=== PATIENT | female | born 1990 | race Caucasian/White ===

== ENCOUNTER → 2019-12-12 16:51 | Outpatient (CLI) | payer BC, SELFPAY ==
--- NOTE | ~2019-12-12 | XR_ITS ---
EXAMINATION: XR chest 2V EXAM DATE: 12/12/2019 17:34 INDICATION: R07.89 - Other chest pain . Shortness of breath and chest pressure for the anterior porti on of middle chest for 3 days. TECHNIQUE: Frontal and lateral projections of the chest obtained and reviewed. There is no prior jeremy dy for comparison. FINDINGS: The lungs are clear. There are no pleural effusions. The cardiomediastinal silhouette is within normal limits. There is no pneumothorax suspected. The bones and soft tissues are unremarkab le. IMPRESSION: No acute cardiopulmonary findings. Reviewed, dictated and finalized at location A.
== END ==
PROVIDERS: PCP Internal Medicine; Visit Provider Internal Medicine
DX: R07.89 Other chest pain (principal)
CPT/HCPCS: 71046

== ENCOUNTER 2019-12-17 07:53 | Outpatient (CLI) | payer BC, SELFPAY ==
--- NOTE | ~2019-12-17 | US_ITS ---
EXAMINATION: US right upper quadrant DATE: 12/17/2019 08:56 INDICATION: Abdominal pain TECHNIQUE: Multiple grayscale and Doppler ultrasound images of the abdomen were obtained. COMPARISON: None FINDINGS: Liver has normal echogenicity and contour, with a smooth surface. No liver lesion identified. No intr ahepatic biliary duct dilation suspected. Portal venous flow was seen in the hepatopetal, normal dire ction and has normal Doppler waveform. The gallbladder is normal in appearance. There is no cholelit hiasis. The common bile duct measures 3-4 mm, which is normal. Sonographic Bojorquez sign was reported a s negative by the postal carrier.Visualized portion of the right kidney demonstrates normal contour and echogenicity with no hydronephrosis. The pancreatic head and body are normal in appearance. The panc reatic tail is not visualized. The visualized proximal to mid inferior vena cava is normal. IMPRESSION: 1. Normal right upper quadrant ultrasound. Reviewed, dictated and finalized at location B.
== END 2019-12-17 07:54 | disposition home or self-care (01) ==
PROVIDERS: PCP Internal Medicine; Visit Provider Clinical Nurse Specialist
DX: R10.9 Unspecified abdominal pain (principal)
CPT/HCPCS: 76705

== ENCOUNTER 2019-12-31 08:55 | Outpatient (CLI) | payer BC, SELFPAY ==
--- NOTE | 2020-01-11 15:49 | WPDHOLTEREM ---
Holter/Event Monitor Holter/Event Monitor Date of procedure: 01/11/20 Procedure Type: 48 hour Holter monitor Diagnosis: palpitation Indications: palpitation Image/Tracing Quality: tracing quality was adequate there were examples of baseline artifact but this did not render the strips uninterpretable Finding: the basic cardiac rhythm is sinus with normal [place] QRS and QT intervals. The heart rate varies from a minimum of 50 to a maximum of 146 the mean rate was 78. There were no significant pauses or abnormalities of AV conduction. The longest RR interval recorded was 1.4 seconds. Supraventricular ectopic activity was extremely rare 3 APCs were seen during the entire 48 hour study. There were no examples of atrial fibrillation. Ventricular ectopic activity was also rare a total of 6 PVCs were seen during the entire exam. There were no ventricular couplets or runs. The patient maintained a diary in which a number of symptomatic episodes were recorded. At 11:40 a.m. on day 1 symptoms of chest pain correlate with sinus rhythm at a heart rate of 83 without any arrhythmias. At 11:50 a.m. on the same day symptoms of palpitations correlate with sinus rhythm heart rate of 79 without ectopic activity. And D 2. At 7:45 a.m. an episode of chest pain correlates with sinus rhythm at a heart rate of 75 without arrhythmias. At 9:40 a.m. an episode of chest pain correlates with sinus rhythm heart rate of 90 without without arrhythmia. At 2:47 p.m. an episode of lightheadedness and dizziness correlates with sinus rhythm at a heart rate of 93 without any arrhythmias. Conclusion: Essentially unremarkable 48 hour Holter monitor scan. Low-frequency atrial and ventricular ectopic activity. Symptoms as noted in the diary do not appear to be related to any arrhythmias Chavo Ramires MD [facility]
== END 2019-12-31 08:56 | disposition home or self-care (01) ==
PROVIDERS: PCP Internal Medicine; Visit Provider Clinical Nurse Specialist
DX: R00.2 Palpitations (principal)
CPT/HCPCS: 93225; 93226

== ENCOUNTER 2020-03-29 09:48 | Outpatient (CLI) | payer BC, SELFPAY ==
--- NOTE | ~2020-03-29 | MR_ITS ---
EXAMINATION: MR brain/brain stem wo con DATE: 03/29/2020 10:37 INDICATION: Headache. TECHNIQUE: Magnetic resonance imaging (MRI) of the brain and brainstem was performed without intraven ous contrast. Sequences included sagittal and axial T1-weighted FSE, axial diffusion-weighted FS EPI, axial T2*-weighted GRE, axial T2-weighted FLAIR Propeller, and axial T2-weighted Propeller. Apparent diffusion coefficient (ADC) maps were created. COMPARISON: None. FINDINGS: There is no intracranial hemorrhage, acute infarction, or abnormal intracranial mass lesion . The ventricles are normal in size. There is mild mucosal thickening in the paranasal sinuses. The o rbits are normal. The mastoid air cells are normal. IMPRESSION: 1. Normal brain. Reviewed, dictated and finalized at location A. [facility] IMPRESSION: 1. Normal brain.
== END 2020-03-29 09:49 | disposition home or self-care (01) ==
PROVIDERS: PCP Internal Medicine; Visit Provider Nurse Practitioner
DX: R51.9 Headache, unspecified (principal)
CPT/HCPCS: 70551

== ENCOUNTER 2022-03-03 09:16 | Outpatient (CLI) | payer OTHER, SELFPAY ==
[2022-03-03 17:55] LABS: Basophils Percent Auto 0.6 % (0.2-1.2); Eosinophils Absolute Auto 0.2 K/mm3 (0-0.3); Eosinophils Percent Auto 3.3 % (0-4.4); Hematocrit 41.9 % (37.0-47.0); Hemoglobin 13.5 g/dL (12.0-15.0); Immature Granulocyte Absolute 0.01 K/mm3 (0.00-0.031); Immature Granulocyte Percent A 0.2 % (0-0.5); Lymphocytes Absolute Auto 2.63 K/mm3 (0.9-3.2); Lymphocytes Percent Auto 39.9 % (18.3-44.2); Mean Corpuscular HGB Conc 32.2 g/dl (32-36); Mean Corpuscular Hemoglobin 30.8 pg (26-34); Mean Corpuscular Volume 95.7 fl (80-100); Mean Platelet Volume 10.2 fl (7.4-10.4); Monocytes Absolute Auto 0.6 K/mm3 (0.1-0.6); Monocytes Percent Auto 9.3 % (2.6-8.5); Neutrophils Absolute Auto 3.1 K/mm3 (1.3-6.7); Neutrophils Percent Auto 46.7 % (45.5-73.1); Platelet Count Result 224 k/mm3 (150-375); Red Blood Count 4.38 M/mm3 (4.2-5.4); Red Cell Distribution Width 12.7 % (11.5-14.5); White Blood Count 6.6 K/mm3 (4.5-10.0)
[2022-03-03 19:03] LABS: Erythrocyte Sedimentation Rate 12 mm/hr (0-20)
[2022-03-03 20:37] LABS: Alanine Aminotransferase 20 U/L (6-35); Albumin Level 4.6 g/dL (3.5-5.1); Alkaline Phosphatase 51 U/L (38-126); Anion Gap 9 mmol/L (8-16); Aspartate Amino Transferase 30 U/L (14-36); Bilirubin,Total 0.6 mg/dL (0.2-1.3); Blood Urea Nitrogen 16 mg/dL (7-17); Calcium 9.3 mg/dL (8.4-10.2); Carbon Dioxide 28 mmol/L (22-30); Chloride 103 mmol/L (98-107); Estimated Glomerular Filt Rate > 60; Glucose 60 mg/dL (65-110); Potassium 4.5 mmol/L (3.4-5.0); Sodium 140 mmol/L (137-145)
== END 2022-03-03 09:17 | disposition home or self-care (01) ==
LOC: ANHGOSHLAB 09:18
PROVIDERS: PCP Internal Medicine; Visit Provider Nurse Practitioner
DX: R21 Rash and other nonspecific skin eruption (principal)
CPT/HCPCS: 36415; 80053; 84443; 85025; 85652

== ENCOUNTER 2022-07-04 09:37 | Emergency (ER) | payer OTHER, SELFPAY ==
--- NOTE | ~2022-07-04 | XR_ITS ---
XR forearm LT 2V 07/04/2022 10:03 INDICATION: Left arm pain PROCEDURE: 2 views left forearm COMPARISON: No prior studies for comparison. FINDINGS: Fracture, dislocation or subluxation is not identified. The soft tissues appear within norm al limits. No foreign bodies are identified. IMPRESSION: 1: NO ACUTE BONE OR JOINT ABNORMALITY IDENTIFIED. Reviewed, dictated and finalized at location A.
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
[2022-07-04 09:47] VITALS: BP 116/76; PULSE 66; RESP 16; TEMP 36.7; O2SAT 100
--- NOTE | 2022-07-04 10:09 | PC.NURSE ---
PT DECLINED ICE FOR COMFORT
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
== END 2022-07-04 10:15 | disposition home or self-care (01) ==
PROVIDERS: Emergency Provider Nurse Practitioner; PCP Internal Medicine
DX: S60.222A Contusion of left hand, initial encounter (principal); S50.12XA Contusion of left forearm, initial encounter; S50.812A Abrasion of left forearm, initial encounter; V47.5XXA Car driver injured in collision with fixed or stationary object in traffic accident, initial encounter
CPT/HCPCS: 73090; 73130; 99213; G0463

== ENCOUNTER 2023-09-09 09:48 | Outpatient (CLI) | payer OTHER, SELFPAY ==
[2023-09-09 18:43] LABS: Basophils Percent Auto 0.5 % (0.2-1.2); Eosinophils Absolute Auto 0.1 K/mm3 (0-0.3); Eosinophils Percent Auto 1.6 % (0-4.4); Hematocrit 42.4 % (37.0-47.0); Hemoglobin 13.5 g/dL (12.0-15.0); Immature Granulocyte Absolute 0.04 K/mm3 (0.00-0.031); Immature Granulocyte Percent A 0.7 % (0-0.5); Lymphocytes Absolute Auto 2.75 K/mm3 (0.9-3.2); Lymphocytes Percent Auto 48.6 % (18.3-44.2); Mean Corpuscular HGB Conc 31.8 g/dl (32-36); Mean Corpuscular Hemoglobin 29.6 pg (26-34); Mean Platelet Volume 9.9 fl (7.4-10.4); Monocytes Absolute Auto 0.5 K/mm3 (0.1-0.6); Neutrophils Absolute Auto 2.2 K/mm3 (1.3-6.7); Neutrophils Percent Auto 39.6 % (45.5-73.1); Platelet Count Result 227 k/mm3 (150-375); Red Blood Count 4.56 M/mm3 (4.2-5.4); Red Cell Distribution Width 12.1 % (11.5-14.5); White Blood Count 5.7 K/mm3 (4.5-10.0)
[2023-09-09 19:02] LABS: Alanine Aminotransferase 25 U/L (6-35); Albumin Level 4.7 g/dL (3.5-5.1); Alkaline Phosphatase 53 U/L (38-126); Anion Gap 9 mmol/L (4-12); Aspartate Amino Transferase 38 U/L (14-36); Bilirubin,Total 0.6 mg/dL (0.2-1.3); Blood Urea Nitrogen 15 mg/dL (7-17); Calcium 9.1 mg/dL (8.4-10.2); Carbon Dioxide 29 mmol/L (22-30); Chloride 99 mmol/L (98-107); Cholesterol 193 mg/dL (0-200); Estimated Glomerular Filt Rate > 60; Glucose 81 mg/dL (65-110); HDL Direct 39 mg/dL; Potassium 4.6 mmol/L (3.4-5.0); Sodium 137 mmol/L (137-145); Triglycerides 87 mg/dL (<150)
[2023-09-09 19:14] LABS: LDL Cholesterol Direct 132 mg/dL
[2023-09-09 19:22] LABS: Vitamin D 25 Hydroxy 37.7 ng/mL
== END 2023-09-09 09:49 | disposition home or self-care (01) ==
LOC: ANHGOSHLAB 09:50
PROVIDERS: PCP Internal Medicine; Visit Provider Nurse Practitioner
DX: F41.9 Anxiety disorder, unspecified (principal); E55.9 Vitamin D deficiency, unspecified; G47.19 Other hypersomnia
CPT/HCPCS: 36415; 80053; 80061; 82306; 82607; 82728; 84443; 85025

== ENCOUNTER 2024-11-16 09:55 | Outpatient (CLI) | payer OTHER, SELFPAY ==
--- OUTSIDE RECORDS SUMMARY | 2024-11-16 10:00 | XMS_ITS | Clinical Summary ---
Author Organization [facility] Address [address] [address] Care Team Providers Care Customer Service Advocate Name Role Phone Greg Guzman DO Primary Care Provider [phone] Allergies Active Allergy Reactions Criticality Noted Date Comments Erythromycin-Sulfisoxazole Rash Medium 8 Medications magnesium oxide,aspartate,ci tr (Triple Magnesium Complex) 400 mg magnesium capsule Take by mouth Active acetaminophen 500 mg capsuleIndications :Fever,Pain Take 2 capsules (1,000 mg total) by mouth every 6 (six) hours as needed for pain 90 tablet 1 02/18/20 21 Active Additional Information Patient not taking.Reported on 10/05/2024 ibuprofen (ADVIL,MOTRIN) 600 mg tabletIndications: Cramps Take 1 tablet (600 mg total) by mouth every 6 (six) hours as needed for pain 90 tablet 1 02/18/20 21 Active Additional Information Patient not taking.Reported on 10/05/2024 sertraline (ZOLOFT) 50 mg tabletIndications: Anxiety with Depression Take 1.5 tablets (75 mg total) by mouth every morning 30 tablet 11 03/30/19 22 Active Additional Information Patient not taking.Reported on 10/05/2024 cetirizine (ZyrTEC) 10 mg chewable tablet Take 1 tablet (10 mg total) by mouth daily Active rizatriptan [employer] (MAXALT-VP [employer]) 5 mg disintegrating tabletIndications: Migraine Take 1 tablet (5 mg total) by mouth once as needed for migraine May repeat in 2 hours if unresolved. Do not exceed 30 mg in 24 hours. Active ALPRAZolam (XANAX) 0.25 mg tablet Take 1 tablet (0.25 mg total) by mouth daily as needed 09/09/19 24 Active buPROPion XL (WELLBUTRIN XL) 300 mg 24 hr tablet TAKE 1 TABLET BY MOUTH EACH MORNING 05/17/19 25 Active Hospital, Clinic, or Other Facility Administered Medication Ordered Dose Route Frequency Start Date End Date Status levonorgestreL (MIRENA) 21 mcg/24 hours (8 yrs) 52 mg IUDIndications:Preg lupe Contraception intrauterine Continuous (implanted device) 05/26/2023 9 Active Active Problems Problem Noted Date Diagnosed Date Acute non-recurrent maxillary sinusitis 12/31/19 23 Assessment & Plan (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 Stopped 07/2017. Infertility associated with anovulation 07/05/19 18 IBS (irritable bowel syndrome) 07/04/2017 Family history of genetic disorder 04/19/2016 Encounter for preconception consultation 017 Focal nodular hyperplasia of liver 01/31/2015 Lesion of liver 01/07/2015 Right upper quadrant abdominal pain 01/06/2015 Decreased cardiac output 12/26/2014 Resolved Problems Problem Noted Date Diagnosed Date Resolved Date care following vaginal delivery 02/16/2021 03/30/2021 Overview (02/17/2021): # ID: Afebrile. No signs/symptoms of infection. #COVID-19: Negative # Heme: EBL 150 mL. No symptoms acute blood loss anemia. Admission Hgb 11.1. #Rh negative: Rh negative, no Rhogam needed. # CV/Pulm: Isolated MR blood pressure not meeting criteria for gHTN. Will CTM. # GI/: Tolerating PO. Voiding spontaneously. # Pain: Controlled with above regimen. # Anxiety: On Zoloft 50mg. Reports that mood has been stable. # Post DVT prophylaxis: The patient has the following MAJOR risk factors none and the following MINOR risk factors none. SCDs ordered for VTE prophylaxis. # MOC: Undecided - plans to address . # MOF: # COVID Vaccination Status: Previously received . Declines booster dose while inpatient. # Disposition: Follow up task not sent. Desires discharge home today. heart rate deceleratio ns affecting management of mother 02/15/2021 03/30/2021 Overview (02/15/2021): 1. Induction of labor for decels at term: Admit to L&D. Consents signed and placed in chart. Send CBC/T&S. Given made some cervical change in WAC, will expectantly manage for now. If does not make further change will induce with OT. 2. FWB: Continuous monitoring. tracing category II, reassured by variability and accels 3. ID: HIV negative. GBS negative. Membrane Status: intact. 4. Indications for UDS: none. Verbal consent obtained for UDS: Not indicated 5. MOF: Plans to breastfeed. 6. MOC: Undecided on contraception. 7. Pain management: Desires epidural during labor. 8. Post DVT prophylaxis: The patient has the following MAJOR risk factors none and the following MINOR risk factors BMI 30-39. SCDs will be ordered for VTE prophylaxis . 9. COVID Vaccine Status: Not assessed 10. COVID Test Status: Test sent on admission 11. Rh negative: for PP rhogam workup 12. Anxiety: on SSRI, for peds at delivery 13. Hx gHTN: normotensive on admission Supervision of other normal , antepartum 07/18/2020 03/30/2021 Overview (02/05/2021): -Rh- -MAB 03/2020 s/p D&C -migraines: mag MCRM EZIO pt, spont preg -h/o gHTN in G1 -IOL sched 02/18/2021 @ 0830, pt aware , covid testing ordered [x] Labs: completed [x] Genetic Screening: nml CFDNA [x] Baby ASA: recommended [x] 1hr GCT at 24-28wks: nml, 119 [x] Tdap (27-36wks): 10/18-hr [x] Flu Shot: /18-hr [x] Rhogam (if Rh neg): A- 18-hr [x] GBS at 36 wks: Negative [x] [x] control method: undecided, list provided [x] 39 weeks discussion of IOL vs. Expectant management: 39wk IOL [x] Mode of delivery: anticipate [] For C/S bottle of CHG 4% and hand out provided @ 36wks Boy, circ+,, Dr. Brown in [place], [place] Teaching: [x] 1st visit [x] 28-30 week [x] 36 week Missed 04/11/2020 03/30/2021 Overview (04/11/2020): Added automatically from request for surgery [id number] Supervision of other normal , antepartum 03/04/2020 05/05/2020 Overview (03/24/2020): -Hx of GHTN last -anxiety: zoloft and ativan -headaches/migraines: imitrex -RH- [] Labs: [] Genetic Screening: [] Baby ASA: [] 1hr GCT at 24-28wks: [] Tdap (27-36wks): [] Flu Shot: [] Rhogam (if Rh neg): A- [] GBS at 36 wks: [] [] control method: [] 39 weeks discussion of IOL vs. Expectant management: [] Mode of delivery: [] For C/S bottle of CHG 4% and hand out provided @ 36wks Teaching: [] 1st visit [] 28-30 week [] 36 week Gestational hypertension, third trimester 05/15/2018 06/30/2018 Encounters Date Type Department Care Team Description 10/17/2024 Results Follow-Up Emir [facility]ov[facility] [address] [place] [address] [address] [place] [address] Mony Heller NP DIAGNOSTIC MAMMOGRAM BILATERAL W NELSON 10/11/2024 8:44 AM CDT - 10/11/2024 11:59 PM CDT Hospital Encounter [facility] [address] [place] [address] Subareolar mass of right breast Discharge Disposition: Discharge to home or self care 10/11/2024 8:44 AM CDT - 10/11/2024 11:59 PM CDT Hospital Encounter [facility] [address] [place] [address] Subareolar mass of right breast Discharge Disposition: Discharge to home or self care 10/05/2024 2:15 PM CDT Office Visit [facility] [address] [place] [address] [address] [place] [address] Mony Heller NP Subareolar mass of right breast (Primary Dx) 10/05/2024 Orders Only [facility] [address] [place] [address] [address] [place] [address] Mony Heller, JOLIE Subareolar mass of right breast (Primary Dx) 10/05/2024 Telephone [facility]irk[facility] Tovar [address] [place] [address] [address] [place] [address] Cadence Berumen NP Breast Mass from Last 3 Months Immunizations Immunization Administration Dates Next Due Influenza, Quadrivalent, Patty l Culture-based MDCK, Preservative Free, Antibiotic Free, Intramuscular 12/08/2020 Influenza, Unspecified 10/23/2019 Tdap 12/08/2020,03/13/2018 Surgical History Surgery Date Site/Laterality Comments TONSILLECTOMY 02/22/1992 - 02/20/1993 DIAGNOSTIC LAPAROSCOPY 02/22/2008 - 02/20/2009 COLPOSCOPY DILATION AND CURETTAGE, DIAG NOSTIC / THERAPEUTIC 04/18/2020 ADENOIDECTOMY Bilateral Medical History Medical History Date Comments Abnormal Pap smear of cervix 2009 HPV , negative on repeat Migraines Anxiety Supervision of other normal , antepartu m 03/04/2020 Family History Medical History Relation Name Comments Neurofibromatosis Brother Brugada arrhythmia Father Hypertension Father Neurofibromatosis Father Breast cancer Father's Sister 1 Neurofibromatosis Father's Sister 1 Breast cancer Father's Sister 2 Neurofibromatosis Father's Sister 2 Heart attack Maternal Grandfather Diabetes Maternal Grandmother Hyperlipidemia Maternal Grandmother Hypertension Maternal Grandmother Diabetes Mother Hypertension Mother Neurofibromatosis Paternal Grandfather Breast cancer Paternal Grandmother Anesthesia problems Neg Hx Relation Name Status Comments Brother Father Alive Father's Sister 1 Father's Sister 2 Maternal Grandfather Maternal Grandmother Mother Alive Paternal Grandfather Paternal Grandmother Social History Tobacco Use Types Packs/Day Years Used Date Smoking Tobacco: Never Smokeless Tobacco: Never Tobacco Cessation:Counseling Given: Not Answered Alcohol Use Standard Drinks/Week Comments Not Currently 1 (1 standard drink = 0.6 oz pur e alcohol) Humiliation, Afraid, Rape, and Kick questionnair e Answer Date Recorded Within the last year, have y ou been afraid of your partner or ex-partner? No 04/15/2023 Within the last year, have y ou been humiliated or emotionally abused in other ways by your partner or ex-partner? No Within the last year, have y ou been kicked, hit, slapped, or otherwise physically hurt by your partner or ex-partner? No 04/15/2023 Within the last year, have y ou been raped or forced to have any kind of sexual activity by your partner or ex-partner? No 04/15/2023 Social Connection and Isolation Panel Answer Date Recorded In a typical week, how many times do you talk on the phone with family, friends, or neighbors? More than three times a week 02/16/2021 How often do you get togethe r with friends or relatives? More than three times a week 02/16/2021 Attends Hoahaoism Services Not on file 02/16 Active Member of Clubs or Organizations Not on f ile 02/16/2021 Attends Club or Organization Meetings Not on maikel e 02/16/2021 Are you , , di vorced, , never , or living with a partner? 02/16/2021 AUDIT-C Answer Date Recorded Q1: How often do you have a drink containing alc ohol? Never 12/22/2020 Average Number of Drinks Not on file 021 Frequency of Binge Drinking Not on file 02/2020 Overall Financial Resource Strain (CARDIA) Answe r Date Recorded How hard is it for you to pa y for the very basics like food, housing, medical care, and heating? Not hard at all 02/16/2021 PHQ-2 Answer Date Recorded PHQ-2 Total Score (If total score is 3 or more points, staff should administer the PHQ-9) 0 08/03/2024 Exercise Vital Sign Answer Date Recorde d On average, how many days pe r week do you engage in moderate to strenuous exercise (like a brisk walk)? 0 days 02/29/2020 On average, how many minutes do you engage in exercise at this level? 0 min 02/29/2020 Hunger Vital Sign Answer Date Recorded Within the past 12 months, y ou worried that your food would run out before you got the money to buy more. Never true 02/17/20 21 Within the past 12 months, t he food you bought just didn't last and you didn't have money to get more. Never true 02/16/2021 PRAPARE - Transportation Answer Date Re corded In the past 12 months, has l ack of transportation kept you from medical appointments or from getting medications? No 01/22 In the past 12 months, has l ack of transportation kept you from meetings, work, or from getting things needed for daily living? No 02/16/2021 Potosi Depression Scale Answer Date Recorded Potosi Depression Scale Total 8 03/30/2021 The thought of harming myself has occurred to me . 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 Not on file Not on maikel e Not on file Obstetrics History Para Term AB IAB SAB Ectopic Multiple Livin g Live Births 3 2 2 0 1 0 1 0 0 2 2 Date Outcome GA Total Labor Labor/2nd/3rd Weight Sex Type Anes PTL Leonora A1 A5 Name Clin 2018 Term 37w 6d 0h 50m 0h 46m/0h 04m 2.68 kg (5 lb 14.5 oz) M Vag-S pont Epidur al N Livin g 8 9 CONCEPCION BACON Rachel Elizab eth, MD Complications:None Delivery Location:[facility] ([facility]) 2020 SAB 2020 Term 38w 4d 11h 23m 11h 00m/0h 14m/0h 09m 2.86 kg (6 lb 4.9 oz) M Vag-S pont Epidur al N Livin g 8 9 CONCEPCION BACON , Luke Gill MD Complications:None Delivery Location:[facility] Main C ampus ([facility]LD) Comments 2018 - pitocin induction for MANUELTKari. . [id number] TBA-38.4 who presented with contractions. She made a little change from 1.2->2, but had a decel so we kept her. Small perineal abrasion not repaired. EBL 150cc. Circ done! Last Filed Vital Signs Vital Sign Reading Time Taken Comments Blood Pressure 118/62 10/05/2024 2:13 PM CDT Pulse 62 10/03/2023 10:26 AM CDT Temperature 36.9 C (98.5 F) 10/03/2023 10:26 AM CDT Respiratory Rate 20 10/03/2023 10:26 AM CDT Oxygen Saturation 99% 10/03/2023 10:26 AM CDT Inhaled Oxygen Concentration - - Weight 74.4 kg (164 lb) 10/11/2024 8:53 AM CDT Height 167.6 cm (5' 6) 10/11/2024 8:53 AM CDT Body Mass Index 26.47 10/11/2024 8:53 AM CDT Plan of Treatment Health Maintenance Due Date Last Done Comments Varicella Vaccines (1 of 2 - 13+ 2-dose series) 2002 Hepatitis B Screening 08/08/2007 Pneumococcal vaccine <65 (1 of 2 - PCV) 2008 HPV Vaccines (1 - 3-dose SCD M series) 2016 Influenza Vaccine (#1) 2024 , 10/23/2019, 12/01/2018, Additional history exists Cervical Cancer Screening 08/03/20252024, 04/15/2023, 08/01/2020, Additional history exists Depression Screening 08/03/2025 08/03/2024, 04/15/2023, 03/30/2021 Regular Well Visit/Exam 18-64 08/03/2025, 04/15/2023, 08/22/2019, Additional history exists DTaP/Tdap/Td Vaccine (3 - Td or Tdap) 12/08/2030 12/08/2020, 03/13/2018 Hepatitis C Screening Completed 11/07/2017 Procedures Procedure Name Priority Date/Time Associated Diagnosis Comments US BREAST RIGHT LIMITED Schedule Routine, Read Routine (OP Routine) 10/11/2024 9:26 AM CDT Subareolar mass of right breast DIAGNOSTIC MAMMOGRAM BILATERAL W NELSON Schedule Routine, Read Routine (OP Routine) 10/11/2024 9:03 AM CDT Subareolar mass of right breast PAP, REFLEX HPV Routine 08/03/2024 9:55 AM CDT Well woman exam HEPATITIS C ANTIBODY Routine 11/07/2017 11:52 AM CDT with 10 completed weeks gestation Encounter for supervision of normal first in first trimester from Last 3 Months or Most Recently Relevant to Health Maintenance Results * US Breast Limited right (10/11/2024 9:26 AM CDT) Anatomical Region Laterality Modality Breast Right Ultrasound 10/11/2024 5:05 PM CDT Impressions 10/11/2024 5:05 PM CDT No imaging findings to suggest malignancy are seen. Negative or inconclusive breast imaging studies should not deter biopsy if there are clinically suspicious palpable abnormalities.. In the absence of a clinical change, the patient may return to screening mammography as per ACR guidelines. OVERALL FINAL ASSESSMENT: [id number] Electronically signed by: Isabel Reynoso M.D. Narrative 10/11/2024 5:05 PM CDT EXAMINATION: BILATERAL DIGITAL DIAGNOSTIC MAMMOGRAM AND DIGITAL BREAST TOMOSYNTHESIS; RIGHT BREAST SONOGRAM HISTORY: Palpable abnormality on the right in the retroareolar region. COMPARISON: None TECHNIQUE: Full field digital mammographic views of the bilateral breast(s) were performed, including computer aided detection (CAD) and digital breast tomosynthesis (DBT). Directed ultrasound evaluation of the right breast(s) was performed. BREAST PARENCHYMAL COMPOSITION: The breasts are heterogeneously dense, which may obscure small masses. MAMMOGRAM FINDINGS: There are no suspicious masses. No suspicious calcifications are seen. There is no unexplained architectural distortion. There is no skin thickening seen. There are no mammographically abnormal lymph nodes seen in the axillae or elsewhere. ULTRASOUND FINDINGS: Sonography through the palpable area demonstrates only minimal ductal ectasia and dense tissue. Survey views of other portions of the right retroareolar region and brief survey views of the left retroareolar region demonstrate that this is relatively symmetric. No suspicious masses are seen. us Mony Heller NP IMG MAMMO PROCEDURES Final Resul t * DIAGNOSTIC MAMMOGRAM BILATERAL W NELSON (10/11/2024 9:03 AM CDT) Anatomical Region Laterality Modality Breast Bilateral Mammography 10/11/2024 5:05 PM CDT Impressions 10/11/2024 5:05 PM CDT No imaging findings to suggest malignancy are seen. Negative or inconclusive breast imaging studies should not deter biopsy if there are clinically suspicious palpable abnormalities.. In the absence of a clinical change, the patient may return to screening mammography as per ACR guidelines. OVERALL FINAL ASSESSMENT: [id number] Electronically signed by: Isabel Reynoso M.D. Narrative 10/11/2024 5:05 PM CDT EXAMINATION: BILATERAL DIGITAL DIAGNOSTIC MAMMOGRAM AND DIGITAL BREAST TOMOSYNTHESIS; RIGHT BREAST SONOGRAM HISTORY: Palpable abnormality on the right in the retroareolar region. COMPARISON: None TECHNIQUE: Full field digital mammographic views of the bilateral breast(s) were performed, including computer aided detection (CAD) and digital breast tomosynthesis (DBT). Directed ultrasound evaluation of the right breast(s) was performed. BREAST PARENCHYMAL COMPOSITION: The breasts are heterogeneously dense, which may obscure small masses. MAMMOGRAM FINDINGS: There are no suspicious masses. No suspicious calcifications are seen. There is no unexplained architectural distortion. There is no skin thickening seen. There are no mammographically abnormal lymph nodes seen in the axillae or elsewhere. ULTRASOUND FINDINGS: Sonography through the palpable area demonstrates only minimal ductal ectasia and dense tissue. Survey views of other portions of the right retroareolar region and brief survey views of the left retroareolar region demonstrate that this is relatively symmetric. No suspicious masses are seen. Mony Heller NP IMG MAMMO PROCEDURES Final Resul t * Pap, reflex HPV (08/03/2024 9:55 AM CDT) CLINICAL INFORMATION: [facility] Comment:None given LMP [facility] Comment:UNKNOWN Previous Pap [facility] Comment:NONE GIVEN Prev. Bx [facility] Comment:NONE GIVEN SOURCE: [facility] Comment:Cervix, Endocervix Pap, specimen adequacy [facility] Comment: Satisfactory for evaluation. Endocervical/transformation zone component present. Age and/or menstrual status not provided HPV interp [facility] Comment: Cytology Results: Negative for intraepithelial lesion or malignancy. COMMENTS [facility] Comment: This Pap test has been evaluated with computer assisted technology. Upholstery Handler Linda Anthony [facility] Comment: SXB, CT(ASCP) CT screening location: [facility], [address] [place] [address] [address], [place] [id number] Telegrapher Agent: ELIAN MUÑIZ MD, CLIA: [id number] Comment [facility] Comment: EXPLANATORY NOTE: The Pap is a screening test for cervical cancer. It is not a diagnostic test and is subject to false negative and false positive results. It is most reliable when a satisfactory sample, regularly obtained, is submitted with relevant clinical findings and history, and when the Pap result is evaluated along with historic and current clinical information. Thin prep 08/03/2024 9:55 AM CDT 08/06/2024 2:12 AM CDT Cadence Berumen NP LAB CYTOLOGY ORDERABLES Fin al Result Performing Organization Address City/[facility]/ZIP Co de Phone Number [facility] [place] [address] [address] * Hepatitis C antibody (11/07/2017 11:52 AM CDT) Hep C Ab NON-REACTI VE NON-REACTI VE [facility] [place] SIGNAL TO CUT-OFF 0.01 <1.00 [facility] [place] Blood specimen (specimen) 11/07/2017 11:52 AM CDT 11/07/2017 11:53 AM CDT Narrative [facility] - 11/08/2017 11:13 PM CDT FASTING:NO FASTING: NO Resulting Agency Comment Performing Organization Information: Site ID: [facility] Name: [facility] Address: [address] [place] [address] [facility] [place] [address] Director: Adolph Gates D.O., MPH Alessandra Dawkins MD LAB MICROBIOLOGY - NERAL ORDERABLES Final Result Performing Organization Address City/[facility] Co de Phone Number [facility] [place] from Last 3 Months or Most Recently Relevant to Health Maintenance Insurance [employer] [facility] HMO [facility] HMO Advance Directives For more information, please contact: [phone] * Full Code (Latest Code Status on File) Date Activated Date Inactivated Comments 02/15/2021 11:32 PM 02/17/2021 4:35 PM * Full Code Date Activated Date Inactivated Comments 02/15/2021 10:29 AM 02/15/2021 11:32 PM Full CPR in case of cardiopulmonary arrest * Full Code Date Activated Date Inactivated Comments 04/18/2020 1:27 PM 04/18/2020 7:07 PM * Full Code Date Activated Date Inactivated Comments 05/18/2018 3:25 AM 05/19/2018 3:13 PM * Full Code Date Activated Date Inactivated Comments 05/17/2018 6:04 AM 05/18/2018 3:25 AM Full CPR in case of cardiopulmonary arrest Care Teams Customer Service Advocate Relationship Specialty Start Date End Date Greg Guzman DO PCP - General 10/01/16
--- OUTSIDE RECORDS SUMMARY | 2024-11-16 10:00 | XMS_ITS | Clinical Summary ---
Author Organization [facility] [place] Address [address] [place] [address] Phone Care Team Providers Care Forensic Science Examiner Name Role Phone Provider, Unknown Primary Care Provider Unavaila ble Allergies No known active allergies Medications sertraline (ZOLOFT) 50 MG Tablet 12/24/2019 Active LORazepam (ATIVAN) 0.5 MG Tablet 01/08/2020 Active SUMAtriptan (IMITREX) 50 MG Tablet 10/16/2019 Active Magnesium 400 MG Capsule Take by mouth. Active aspirin EC 81 MG Tablet Delayed Response Take 81 mg by mouth daily. Active Vit-Fe Fumarate-FA ( VITAMIN PO) Take by mouth. 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 Gender Identity Not on file Sexual Orientation Not on file Last Filed Vital Signs Vital Sign Reading Time Taken Comments Blood Pressure 112/68 10/25/2020 12:43 PM CDT Pulse 74 10/25/2020 12:43 PM CDT Temperature 36.4 C (97.5 F) 10/25/2020 12:43 PM CDT Respiratory Rate 20 10/25/2020 12:43 PM CDT Oxygen Saturation 99% 10/25/2020 12:43 PM CDT Inhaled Oxygen Concentration - - Weight 80.7 kg (178 lb) 10/25/2020 12:43 PM CDT Height - - Body Mass Index - - Plan of Treatment Health Maintenance Due Date Last Done Comments Hepatitis C Virus (HCV) Screening 1989 TdaP Immunization 1989 Hepatitis B Immunization (1 of 3 - 19+ 3-dose series) 2008 Pap Smear 2010 Human Papillomavirus (HPV) Immunization (1 - 3-dose SCDM series) 2016 Cervical Cancer Screening (CCS) 08/08/2019 HPV/Cotest 08/08/2019 Influenza Immunization (#1) 10/22/202411/21, 11/08/2017, 12/15/2016 SARS-COV-2 Immunization (2024- season) 2024 05/11/2020, 04/20/2020 Respiratory Syncytial Virus (RSV) Immunization (Adult) (1 - 1-dose 75+ series) 2064 Meningococcal Immunization (ACWY) Aged Out No longer eligible b ased on patient's age to complete this topic Pneumococcal Immunization Combined Aged Out No longer eligible b ased on patient's age to complete this topic Rotavirus Immunization Aged Out No lo nger eligible based on patient's age to complete this topic Insurance [facility] Care Teams Forensic Science Examiner Relationship Specialty Start Date End Date Provider, Unknown UNKNOWN PCP - General 02/10/20
--- OUTSIDE RECORDS SUMMARY | 2024-11-16 10:00 | XMS_ITS | Encounter Summary ---
Author Organization [facility] Address [address] [place] [address] Care Team Providers Care Air Conditioning Specialist Name Role Phone rGeg Guzman DO Primary Care Provider [phone] Encounter Details Date Type Department Care Team (Late st Contact Info) Description 10/17/2024 Results Follow-Up [facility] [address] [facility] [address] [place] [address] Mony Heller, TWIST PACKER 4 [facility] [address] [address] DIAGNOSTIC MAMMOGRAM BILATERAL W NELSON Social History Tobacco Use Types Packs/Day Years [...] than three times a week 02/16/2021 Attends [employer] Not on file 02/16 Active Member [...] things needed for daily living? No 02/16/2021 [place] Depression Scale Answer Date Recorded [place] Depression Scale Total 8 03/30/2021 The thought of harming myself has occurred to me . 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
--- OUTSIDE RECORDS SUMMARY | 2024-11-16 10:00 | XMS_ITS | Clinical Summary ---
Author Organization [facility] Address [address] [place] [address] Care Team Providers Care Gasket Supervisor Name Role Phone Greg Guzman DO Primary Care Provider Source Comments [facility],non-owned Affiliates and Associated Physician Practices is amultiple site organization consisting of ambulatory clinics and hospital sitesin [place], [place], [place] and [place]. This disclosure is being madepursuant to the Care Everywhere program and may not contain all information available regarding this patient. Last updated 17.[facility] Allergies Active Allergy Reactions Criticality Noted Date Comments Erythromycin-Sulfisoxazole 7 Medications * Be aware that medications may not be up to date on this document. Alwaysverify current medications with the patient. ALPRAZolam (XANAX PO) Active rizatriptan (MAXALT) 10 MG tablet Take 10 mg by mouth once as needed for Migraine N Active MV-Min-Fe Fum-FA-DHA ( 1 PO) Acti ve benzonatate (TESSALON) 200 MG capsuleIndications: Acute nasopharyngitis (common cold) Take 1 capsule by mouth 3 times daily as needed for Cough 30 capsule 7 Active Active Problems Patient Care Coordination No te Formatting of this note migh t be different from the original. [facility] [place] Problem Noted Date Diagnosed Date Family history of genetic disorder 04/19/2016 Encounter for preconception consultation 017 Social History Tobacco Use Types Packs/Day Years Used Date Smoking Tobacco: Never Comments Unknown Sex and Gender Information Value Date Recorded Sex Assigned at Not on file Legal Sex Female 12:40 PM INSURANCE CLAIMS SPECIALIST Gender Identity Not on file Sexual Orientation Not on file Last Filed Vital Signs Vital Sign Reading Time Taken Comments Blood Pressure 116/74 01/04/2017 9:16 AM INSURANCE CLAIMS SPECIALIST Pulse 83 01/04/2017 9:16 AM INSURANCE CLAIMS SPECIALIST Temperature 37 C (98.6 F) 01/04/2017 9:16 AM INSURANCE CLAIMS SPECIALIST Respiratory Rate 16 02/24/2016 5:57 PM INSURANCE CLAIMS SPECIALIST Oxygen Saturation - - Inhaled Oxygen Concentration - - Weight 68 kg (150 lb) 01/04/2017 9:16 AM INSURANCE CLAIMS SPECIALIST Height 167.6 cm (5' 6) 01/04/2017 9:16 AM INSURANCE CLAIMS SPECIALIST Body Mass Index 24.21 01/04/2017 9:16 AM INSURANCE CLAIMS SPECIALIST Plan of Treatment Health Maintenance Due Date Last Done Comments HIV SCREENING 2004 HEPATITIS C SCREENING 08/03/2007 DTAP/TDAP/TD VACCINES (1 - Tdap) 2008 HEPATITIS B VACCINE (1 of 3 - 19+ 3-dose series) 2008 HPV VACCINE (1 - 3-dose SCDM series) 2016 DEPRESSION SCREENING 02/22/2024 COVID-19 VACCINE (1 - 2023-2 5 season) 2024 INFLUENZA VACCINE (#1) 2024 ZOSTER VACCINE (1 of 2) 08/08/2039 HIB VACCINE Aged Out No longer eligi ble based on patient's age to complete this topic MENINGOCOCCAL (Group B) VACC INE SHARED DECISION-MAKING Aged Out No longer eligibl e based on patient's age to complete this topic MENINGOCOCCAL GROUPS A/C/Y/W VACCINE Aged Out No longer eligible b ased on patient's age to complete this topic PNEUMOCOCCAL VACCINE Aged Out No long er eligible based on patient's age to complete this topic [place] [address] [employer] ANTHEM Care Teams Gasket Supervisor Relationship Specialty Start Date End Date Greg Guzman DO PCP - General Internal Medicine 02/24/16
[2024-11-16 18:08] LABS: Hematocrit 40.5 % (37.0-47.0); Hemoglobin 13.2 g/dL (12.0-15.0); Immature Granulocyte Percent A 0.3 % (0-0.5); Lymphocytes Absolute Auto 2.39 K/mm3 (0.9-3.2); Mean Corpuscular HGB Conc 32.6 g/dl (32-36); Mean Corpuscular Hemoglobin 30.6 pg (26-34); Mean Corpuscular Volume 94.0 fl (80-100); Nucleated Red Blood Cells Absolute Auto 0.000 K/mm3 (0.0-0.012); Nucleated Red Blood Cells Perc 0.0 % (0.0-0.2); Platelet Count Result 207 k/mm3 (150-375); Red Blood Count 4.31 M/mm3 (4.2-5.4); White Blood Count 6.2 K/mm3 (4.5-10.0)
[2024-11-16 18:30] LABS: Alanine Aminotransferase 20 U/L (6-35); Albumin Level 4.3 g/dL (3.5-5.1); Alkaline Phosphatase 53 U/L (38-126); Anion Gap 8 mmol/L (4-12); Aspartate Amino Transferase 26 U/L (14-36); Bilirubin,Total 0.5 mg/dL (0.2-1.3); Blood Urea Nitrogen 17 mg/dL (7-17); Calcium 8.9 mg/dL (8.4-10.2); Carbon Dioxide 26 mmol/L (22-30); Chloride 102 mmol/L (98-107); Cholesterol 159 mg/dL (0-200); Estimated Glomerular Filt Rate > 60; Glucose 88 mg/dL (65-110); HDL Direct 38 mg/dL; Potassium 4.5 mmol/L (3.4-5.0); Sodium 136 mmol/L (137-145); Total Protein 7.6 g/dL (6.3-8.2); Triglycerides 51 mg/dL (<150)
[2024-11-16 19:07] LABS: Thyroid Stimulating Hormone 1.300 uIU/mL (0.465-4.680)
== END 2024-11-16 09:56 | disposition home or self-care (01) ==
LOC: ANHGOSHLAB 09:56
PROVIDERS: PCP Internal Medicine; Visit Provider Nurse Practitioner
DX: F41.9 Anxiety disorder, unspecified (principal); E55.9 Vitamin D deficiency, unspecified; Z13.220 Encounter for screening for lipoid disorders
CPT/HCPCS: 36415; 80053; 80061; 82306; 84443; 85025